=== PATIENT | female | born 1965 | race Caucasian/White ===

== ENCOUNTER 2016-09-09 12:08 | Emergency (ER) | payer MEDICARE ==
[2016-09-09] MEDS ORDERED: KETOROLAC TROMETHAMINE 60 MG/2 ML SDV IM ONE (12:30)
--- NOTE | 2016-09-09 12:33 | EDPRACDOC ---
- General Information Stated Complaint: L HIP,LEG PAIN Time Seen by Provider: 09/09/16 12:30 Home Medications: Home Medications Duloxetine [Cymbalta] 60 mg PO BID 12/11/14 Promethazine [Phenergan] 25 mg PO Q8H PRN 12/11/14 Nabumetone [Relafen] 750 mg PO BID #60 tablet 12/17/14 Enoxaparin Sodium [Lovenox] 30 mg SQ QHS 06/14/15 Gabapentin [Neurontin] 600 mg PO TID 06/14/15 Ketorolac Tromethamine 10 mg PO Q6H PRN #20 tab 09/09/16 Levothyroxine [Synthroid, Levoxyl] 150 mcg PO DAILY 09/09/16 Topiramate [Topamax] 50 mg PO BID 09/09/16 Allergies/Adverse Reactions: Allergies Allergy/AdvReac Type Severity Reaction Status Date / Time Penicillins Allergy Anaphylaxis Verified 06/14/15 17:25 * Sulfa (Sulfonamide Allergy Anaphylaxis Verified 06/14/15 17:25 Antibiotics) * - History of Present Illness HPI: CHRONIC LEFT HIP/LEG PAIN SINCE 2002. PARTIAL DISLOCATION. MOVING LATELY AND DOING BENDING. PAIN IS WORSE THAN USUAL. TAKES MEDS FOR CHRONIC PAIN. CANNOT HAVE SURGERY UNTIL SHE LOSES SOME WT. BMI AT 70. History of: Reports: Arthritis Able to Bear Weight: Limited ED Past Medical History - History Reviewed Yes Nurses notes reviewed and agree except as marked - Patient Medical History Musculoskeletal History: Reports: Osteoarthritis Psychological History: Denies: Substance Use Disorder Systemic History: Reports: Diabetes, Hypothyroidism Additional Past Medical History: MORBID OBESITY Surgical History: Reports: Cholecystectomy, Other (Bladder tack with sling , , tubal ligation, abd abscess 2003) - Family Medical History Reports: Hypertension (Father), Cardiac Disorders (Father) - Social Medical History Smoking Status: Light tobacco smoker (less than 5/day) Social History: Denies: Substance Use Disorder EDM Review of Systems - Review of Systems ROS Negative Except as Marked: Yes All systems reviewed and were negative except as marked - Physical Exam Constitutional: Alert (Awake), No apparent distress Oriented to: Time, Person, Place Last recorded Vital Signs: Oxygen Pulse Oxygen Saturation O2 Device Oxygen Flow Rate Fraction of Inspired Oxygen ( FIO2) - HEENT Head: Normal ( normocephalic) Eye Exam: Normal (PERRL, EOMI, Sclera white) Oropharynx: Normal (Pharynx:Moist without exudate,Gums-no swelling) ENT EAC: Normal TMJ: Normal Nose: No Symptoms Reported (septum midline) Neck: Normal (FROM, trachea at midline) - Respiratory/Cardiovascular Respiratory: Normal - CTA (BBS clear to auscultation without adventitious sounds ) Cardiovascular: Normal (RRR without murmur, gallop or rub) - GI Auscultation: Normal (NABS) Palpation: Normal (Soft,No rebound or guarding, non distended) Tenderness: Non tender Mitchell's Sign: Negative - Musculoskeletal Back: Normal (Non-Tender) Extremities: Pedal Edema, Other Musculoskeletal Comment: TENDER WITH MOVEMENT OF LEFT HIP - Integumentary Skin: Normal, Warm, Dry Lymphatics: Normal (no adenopathy) - Neurologic Memory Impaired: Normal Motor Function: Normal (Normal tone, Pulses 2+ No cyanosis or edema, FROM) Cranial Nerve: Normal (CN II-X11 intact sensation, strength 5/5) Cerebellar: Normal Mood Description: Normal Perception: Normal Decision Time to Discharge: 13:55 - Departure Yes I personally saw and evaluated the patient. Disposition: Home Condition: Good Final Diagnosis: CHRONIC LEFT HIP PAIN Instructions: Hip Pain (ED) Education/Counseling Given To: Patient, Family Member Education/Counseling Given Regarding: Diagnosis, Treatment, Prognosis Referrals: Jennifer Fernando MD [Primary Care Provider] - One Week Prescriptions: Ketorolac Tromethamine 10 mg PO Q6H PRN #20 tab PRN Reason: Pain
[2016-09-09 12:34] VITALS: TEMP 98.2; BMI 69.0
[2016-09-09] MEDS ORDERED: Enoxaparin 1 mg per kg per dose SQ ONE (12:35)
[2016-09-09] MEDS ORDERED: ENOXAPARIN SODIUM SQ ONE ×2 (13:00)
--- NOTE | 2016-09-09 13:49 | DIRPT ---
CLINICAL DATA: Hip pain EXAM: LEFT HIP (WITH PELVIS) 2-3 VIEWS COMPARISON: 05/31/2016 FINDINGS: There is left hip dysplasia with severe superimposed degenerative change. Mild degenerative change of the right hip joint. No definite fracture. Findings are not appreciably changed. Alignment of the bony framework is stable. There continues to be expected lateral subluxation of the left femoral head. IMPRESSION: There is left hip dysplasia and severe superimposed degenerative changes. Findings are stable compared to 05/31/2016. No acute fracture. Electronically Signed By: Brandon Steinberg M.D. On: 09/09/2016 13:46
[2016-09-09 16:17] VITALS: BP 163/68; PULSE 88
== END 2016-09-09 15:25 | disposition home or self-care (01) ==
LOC: ED 12:08
DX: M79.605 Pain in left leg (principal); G89.29 Other chronic pain
CPT/HCPCS: 73502; 96372; 99283; J1650; J1885